=== PATIENT | male | born 1960 | race Caucasian/White ===

== ENCOUNTER 2023-08-08 11:07 | Emergency (ER) | payer OTHER ==
[~2023-08-08] VITALS: Ht 190.5 cm; Wt 104.3 kg
[2023-08-08] MEDS ORDERED: PERCOCET 5-3251 EACH PO (11:39)
== END 2023-08-08 12:13 | disposition home or self-care (01) ==
LOC: ED 11:07
DX: M54.2 Cervicalgia (principal); G89.29 Other chronic pain; Z88.8 Allergy status to other drugs, medicaments and biological substances

== ENCOUNTER 2024-03-08 16:00 | Emergency (ER) | payer OTHER ==
[~2024-03-08] VITALS: Ht 190.5 cm; Wt 102.1 kg
[~2024-03-08 16:00] MED LIST: PERCOCET 5-3251 EACH PO
[2024-03-08] MEDS ORDERED: PREDNISONE20 M1 PO (20:06)
[2024-03-08] MEDS ORDERED: methylPREDNISolone sod succ 125 MG VIAL IM ONE (20:10)
== END 2024-03-08 20:21 | disposition home or self-care (01) ==
LOC: ED 16:00
DX: M54.2 Cervicalgia (principal); Z98.890 Other specified postprocedural states; Z88.8 Allergy status to other drugs, medicaments and biological substances; Z79.899 Other long term (current) drug therapy; X50.1XXA Overexertion from prolonged static or awkward postures, initial encounter; Y93.K1 Activity, walking an animal; Y92.89 Other specified places as the place of occurrence of the external cause; Y99.8 Other external cause status